=== PATIENT | female | born 2000 | race Caucasian/White ===

== ENCOUNTER 2023-03-18 02:22 | Emergency (ER) | payer SELFPAY ==
[~2023-03-18] VITALS: Ht 172.7 cm; Wt 56.7 kg
[2023-03-18 02:26] VITALS: BP 148/108
--- NOTE | 2023-03-18 02:26 | NUR ---
PT BIBA BLS ER BED 3
[2023-03-18] MEDS ORDERED: NACL 0.9% 1,000 ML IV ONE (02:30)
[2023-03-18] MEDS ORDERED: ONDANSETRON 4 MG/2 ML VIAL IVP ONE (02:30)
--- NOTE | 2023-03-18 02:30 | NUR ---
ASSUMED CARE , ETOH , N/V
[2023-03-18 02:55] LABS: BASOPHILS # (AUTO) 0.1 K/uL (0.00-0.22); BASOPHILS % (AUTO) 1.3 % (0.0-2.0); EOSINOPHILS % (AUTO) 0.1 % (0.0-4.0); HEMOGLOBIN 12.2 g/dL (12.0-16.0); LYMPHOCYTES # (AUTO) 1.7 K/uL (2.5-16.5); LYMPHOCYTES % (AUTO) 29.2 % (20.5-51.1); MEAN CORPUSCULAR HEMOGLOBIN 30 pg (27-31); MEAN CORPUSCULAR HGB CONC 34 g/dL (33-37); MEAN CORPUSCULAR VOLUME 86.8 fL (80-94); MONOCYTES # (AUTO) 0.4 K/uL (0.8-1.0); MONOCYTES % (AUTO) 7.1 % (1.7-9.3); NEUTROPHILS # (AUTO) 3.7 K/uL (1.8-7.7); NEUTROPHILS % (AUTO) 62.3 % (42.2-75.2); PLATELET COUNT (AUTO) 198 K/uL (140-450); RED BLOOD CELL COUNT(AUTO) 4.15 MIL/uL (4.20-5.40); RED CELL DISTRIBUTION WIDTH 13.8 % (11.6-13.7); WHITE BLOOD COUNT (AUTO) 5.9 K/uL (4.8-10.8)
[2023-03-18 03:16] LABS: ALBUMIN 4.1 g/dL (3.4-5.0); ANION GAP 13.9 (8-16); CREATININE 0.7 mg/dL (0.6-1.3); TOTAL BILIRUBIN 0.4 mg/dL (0.0-1.0)
--- NOTE | 2023-03-18 03:16 | NUR ---
IV STARTED , ANTIEMETIC PROVIDED
[2023-03-18 03:18] LABS: POTASSIUM 2.9 mmol/L (3.5-5.1)
--- NOTE | 2023-03-18 03:19 | NUR ---
AMBULATED TO BR WITH STEADY AIT
--- NOTE | 2023-03-18 03:23 | NUR ---
HEAVENLY (FRIEND) [phone]. ABLE TO DUMPSTER OPERATOR FRIEND WHENEVER DISCHARGED
--- NOTE | 2023-03-18 04:19 | NUR ---
N/V SUBSIDED , PT ASLEEP
[2023-03-18] MEDS ORDERED: KCL 20 MEQ IN 100 mL PREMIX 100 ML IV ONE (04:20)
--- NOTE | 2023-03-18 04:29 | NUR ---
Called her friend for a ride.
[2023-03-18] MEDS ORDERED: POTASSIUM CHLORIDE 10 MEQ TABER PO ONE (04:30)
[2023-03-18 05:06] VITALS: BP 94/47
--- NOTE | 2023-03-18 05:08 | NUR ---
Patient discharged with v/s stable. Written and verbal after care instructions given and explained. Patient verbalized understanding. Wheel Chair Assisted with FRIENDS to car. All questions addressed prior to discharge. Advised to follow up with PMD.
== END 2023-03-18 05:08 | disposition home or self-care (01) ==
LOC: MED 02:22
DX: F10.129 Alcohol abuse with intoxication, unspecified (principal); E87.6 Hypokalemia; Y90.9 Presence of alcohol in blood, level not specified
CPT/HCPCS: 36415; 80053; 85025; 96361; 96374; 99283; G0482; J2405; J7030